=== PATIENT | male | born 2000 | race Caucasian/White ===

== ENCOUNTER 2021-05-10 17:37 | Emergency (ER) | payer OTHER ==
[~2021-05-10] VITALS: Ht 182.9 cm; Wt 104.3 kg
[2021-05-10 18:30] VITALS: BP 134/78; TEMP 98.1
== END 2021-05-10 18:30 | disposition home or self-care (01) ==
LOC: ED 17:37
DX: M25.511 Pain in right shoulder (principal); G89.29 Other chronic pain; X58.XXXA Exposure to other specified factors, initial encounter; Y92.89 Other specified places as the place of occurrence of the external cause
CPT/HCPCS: 96372; 99282; J1885